=== PATIENT | male | born 1950 | race Caucasian/White ===

== ENCOUNTER 2018-06-05 10:31 | Emergency (ER) | payer OTHER, MEDICAID ==
[2018-06-05] MEDS ORDERED: NS 500 ML IV ONE (10:35)
[2018-06-05 11:02] LABS: PLATELET COUNT 190 10^3/uL (150-400)
--- NOTE | 2018-06-05 11:45 | EDPHY ---
H & P Time Seen by Provider: 06/05/18 10:34 HPI/ROS: HPI Right-sided abdominal pain. Constipation. 57-year-old male by ambulate. He presents to the emergency department with complaint of right-sided mid to lower abdominal pain, worsening for the last 2 weeks and significantly worse this morning. He reports that he has a history of chronic back pain after he had a lumbar fusion procedure done a couple of years ago. He does take narcotic pain medication for his chronic back pain. He took an oxycodone earlier today. He reports that his last substantial bowel movement was about a week ago. He reports he has not had any kind of bowel movement in about 3 days. Last time he ate anything was yesterday. Denies any urinary complaints. ROS: Constitutional: No fever, no chills. No weakness. Eyes: No discharge. No changes in vision. ENT: No sore throat. No nasal congestion or rhinorrhea. Respiratory: No cough. No shortness of breath. Cardiac: No chest pain, no palpitations. Gastrointestinal: As above, no vomiting, no diarrhea. Genitourinary: No hematuria. No dysuria or increased frequency with urination. Musculoskeletal: As above. No neck pain. No myalgias or arthralgias. Skin: No rashes. Neurological: No headache. No focal weakness or altered sensation. Past medical history: Spinal stenosis, chronic back pain, migraine headaches, hypertension, cholecystectomy, diverticulosis, abdominal ulcers, constipation. Social history: He is here by himself. No alcohol. Nonsmoker. Physical Exam: General Appearance: Alert, he appears uncomfortable but not in distress. Obese habitus. This patient is responding to questions appropriately and in full sentences. This patient appears well-hydrated and well-nourished. Eyes: Pupils equal and round no pallor or injection. No lid edema, erythema or injection. Respiratory: There are no retractions, lungs are clear to auscultation with good air movement bilaterally. Cardiovascular: Regular rate and rhythm. No murmur. Gastrointestinal: Obese habitus. Abdomen is with vague right lower and lower lateral tenderness on palpation, no masses, bowel sounds normal. No focal tenderness at McBurney's point. No Marley sign. Neurological: Motor sensory function is grossly intact. Cranial nerves are normal. Gait is normal. Skin: Warm and dry, no rashes. Musculoskeletal: No CVA tenderness on palpation bilaterally. Extremities are symmetrical. All joints range without pain or impingement. Psychiatric: No agitation. No depression. Database: EKG: Imaging: CT scan of abdomen and pelvis with IV contrast: Constipation. The appendix is well visualized and is unremarkable. 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 CT otherwise normal. Results were discussed with staff radiologist Dr. Bartholomew. Procedures: Emergency department course: Triage vital signs reviewed. Triage pulse oximetry on room air was low at 80%. Vital signs are otherwise normal. IV was placed. He was placed on a monitor. He declines pain medication at this time. Blood work and urinalysis to be obtained. CT to be obtained after verification of a normal creatinine. 11:35 a.m., patient re-evaluated, CT abdomen and pelvis ordered. Patient consents to workup. He declines pain medication at this time. 2:15 p.m., the patient was re-evaluated, resting comfortably at this time. Results of his CT scan, blood work and urinalysis discussed with him. This time he does feel comfortable going home. I will send him home with a bottle of magnesium citrate to treat his constipation. I will also write him a prescription for a 1/2 prep of GoLYTELY should the magnesium citrate failed to produce a substantial bowel movement. He is in agreement with this plan. He feels comfortable going home. Follow-up and return to emergency department precautions were reviewed with him. All of his questions were answered. He was discharged from the emergency department in good condition. Differential Diagnosis: The differential diagnosis on this patient includes but is not limited to appendicitis, ureterolithiasis, colitis, diverticulitis, constipation. This represents a partial list of diagnoses considered. These considerations are based on history, physical exam, past history, reassessment and diagnostic testing.But I'm very firm on the market except anything above that for not anything above our original terms I'm just not enough to walk away from the deal I just don't play like that Lilliam I just know that's just how I've always been so you know you see what you can do and just let me know okay all right yet but Smoking Status: Former smoker Constitutional: Initial Vital Signs Temperature (C) 36.8 C 06/05/18 10:42 Heart Rate 73 06/05/18 10:42 Respiratory Rate 18 06/05/18 10:42 Blood Pressure 138/88 H 06/05/18 10:42 O2 Sat (%) 88 L 06/05/18 10:42 O2 Delivery Mode Room Air O2 (L/minute) 2 Allergies/Adverse Reactions: No Known Allergies Allergy (Verified 06/05/18 10:40) Home Medications: Medication Instructions Recorded Sertraline 11/01/14 Oxycontin 07/14/15 Meclizine HCl 01/09/16 HYDROmorphone HCL [Dilaudid 4 mg 4 mg PO 03/23/16 (*)] Peg 3350/Na Sulf,Bicarb,Cl/KCl 2,000 ml PO BOLUS #1 btl 06/05/18 [Golytely (RX)] Medical Decision Making - Data Points Laboratory Results: Laboratory Results 06/05/18 10:45 06/05/18 10:45 Medications Given: Discontinued Medications Hydromorphone HCl (Dilaudid) 1 mg IVP EDNOW ONE Stop: 06/05/18 12:16 Last Admin: 06/05/18 12:18 Dose: 1 mg Sodium Chloride (Ns) 500 mls @ 0 mls/hr IV EDNOW ONE; Wide Open PRN Reason: Protocol Stop: 06/05/18 10:36 Last Admin: 06/05/18 10:57 Dose: 500 mls Magnesium Citrate (Magnesium Citrate) 300 ml PO ONCE ONE Stop: 06/05/18 14:21 Last Admin: 06/05/18 15:05 Dose: 1 btl Departure - Departure Disposition: Home, Routine, Self-Care Clinical Impression: Abdominal pain, Constipation Condition: Good Instructions: Magnesium Citrate (By mouth), Constipation (ED), High Fiber Diet (ED), Acute Abdominal Pain (ED) Additional Instructions: Read and follow provided instructions. 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 This measured 1.6 cm. This will have to be followed by repeat imaging in about a year. Follow-up with your primary care physician in 1-2 days for re-evaluation. Drink contents of magnesium citrate to treat constipation. If you do not have a substantial bowel movement within 4 hr, fill prescription for 1/2 prep of GoLYTELY. Return to the emergency department for worsening abdominal pain, vomiting, fever , blood in your stool or other serious concerns. Referrals: Patient,NotPresent [Unknown] - As per Instructions Prescriptions: Peg 3350/Na Sulf,Bicarb,Cl/KCl [Golytely (RX)] 2,000 ml PO BOLUS #1 btl
[2018-06-05] MEDS ORDERED: IOHEXOL 300 mgI/ML (OMNIPAQUE) 150 ML BTL IV ONE (12:04)
[2018-06-05] MEDS ORDERED: HYDROmorphONE/DILAUDID 2 MG/ML INJ IVP ONE (12:15)
[2018-06-05] MEDS ORDERED: MAGNESIUM CITRATE 300 ML BOTTLE PO ONE (14:20)
[2018-06-05 15:24] VITALS: BP 100/63
== END 2018-06-05 15:26 | disposition home or self-care (01) ==
LOC: EDUNIT#
DX: R10.31 Right lower quadrant pain (principal); K59.00 Constipation, unspecified; I10 Essential (primary) hypertension; E86.9 Volume depletion, unspecified
CPT/HCPCS: 74177; 96361; 96374; 99285; J1170; Q9967

== ENCOUNTER → 2018-06-07 | Outpatient (CLI) | payer OTHER, MEDICAID ==
[~2018-06-07] MED LIST: GADOBUTROL 10 ML VIAL IVP ONE
== END ==
LOC: FIMAGING 14:48
PROVIDERS: ATTEND Internal Medicine
DX: M51.36 Other intervertebral disc degeneration, lumbar region (principal); M12.88 Other specific arthropathies, not elsewhere classified, other specified site
CPT/HCPCS: 72158; A9585

== ENCOUNTER → 2018-07-17 | Outpatient (CLI) | payer OTHER, MEDICAID | LOC: FIMAGING 09:04 | PROVIDERS: ATTEND Physician Assistant Medical | DX: M54.6 Pain in thoracic spine (principal) ==

== ENCOUNTER → 2018-08-10 | Outpatient (CLI) | payer OTHER, MEDICAID | LOC: FIMAGING 10:16 | PROVIDERS: ATTEND Physician Assistant Medical | DX: M51.36 Other intervertebral disc degeneration, lumbar region (principal); M16.0 Bilateral primary osteoarthritis of hip ==